=== PATIENT | male | born 1980 | race African-American/Black ===

== ENCOUNTER 2016-12-11 13:24 | Emergency (ER) | payer SELFPAY ==
--- NOTE | 2016-12-11 15:04 | ER Document Report ---
ED Medical Screen (RME) - General Mode of Arrival: Ambulatory Information source: Patient TRAVEL OUTSIDE OF THE [place] IN LAST 30 DAYS: No <SHANTELLE OBRIEN - Last Filed: 12/11/16 15:11> <DAGMAR AMARO - Last Filed: 12/11/16 19:28> - General Chief Complaint: High Blood Pressure Stated Complaint: ELEVATED BLOOD PRESSURE Time Seen by Provider: 12/11/16 14:54 Notes: Patient presents with complaints of high blood bressure. patient was told to come over by [facility] with his past three days blood pressure reading of 189/100, 200/110, 160/100. Patient also complains of chest tightness. Denies breathing difficulty, blurry vision, and pain in arms. Hx of asthma. (SHANTELLE OBRIEN) - Related Data Allergies/Adverse Reactions: No Known Allergies Allergy (Verified 12/11/16 14:42) Past Medical History - General Information source: Patient - Social History Cigarette use (# per day): Yes Frequency of alcohol use: None Drug Abuse: None Renal/ Medical History: Denies: Hx Peritoneal Dialysis <SHANTELLE OBRIEN - Last Filed: 12/11/16 15:11> Physical Exam - Respiratory Respiratory status: No respiratory distress Chest status: Nontender Breath sounds: Normal Chest palpation: Normal - Cardiovascular Rhythm: Regular Heart sounds: Normal auscultation - Abdominal Inspection: Normal <SHANTELLE OBRIEN - Last Filed: 12/11/16 15:11> Course - Laboratory Result Diagrams: 12/11/16 15:15 12/11/16 15:15 <DAGMAR AMARO - Last Filed: 12/11/16 19:28> - Vital Signs Vital signs: Temp Pulse Resp BP Pulse Ox 97.7 F 87 17 150/87 H 100 12/11/16 13:28 12/11/16 13:31 12/11/16 13:31 12/11/16 13:31 12/11/16 13:31 - Laboratory Laboratory results interpreted by me: 12/11/16 12/11/16 12/11/16 15:15 15:15 18:05 RBC 5.65 H MCH 26.2 L RDW 14.9 H Seg Neutrophils % 41.8 L Lymphocytes % 47.7 H Creatine Kinase 432 H 383 H Doctor's Discharge <SHANTELLE OBRIEN - Last Filed: 12/11/16 15:11> <DAGMAR AMARO - Last Filed: 12/11/16 19:28> - Discharge Clinical Impression: High blood pressure Qualifiers: Hypertension type: essential hypertension Qualified Code(s): I10 - Essential ( primary) hypertension Condition: Stable Disposition: HOME, SELF-CARE Additional Instructions: High Blood Pressure, Requiring Treatment Your blood pressure is high. This is called "hypertension." Your history and exam suggest that this is not a temporary problem. You need treatment of your blood pressure. Pre-hypertension/Hypertension: The patient has been informed that they may have pre-hypertension or Hypertension based on a blood pressure reading in the emergency department. I recommend that the patient call the primary care provider listed on their dischargge instructions or a physician of their choice this wee to arrage follow up for further evaluation of possible pre- hypertension or Hypertension. If left untreated, high blood pressure greatly increases your risk of heart attack and stroke. Please don't ignore this problem. If you have blood pressure medicine but aren't using it regularly, start taking it again. Some simple things you can do to help are: Get some aerobic exercise for at least 20 minutes on a daily basis. (See your doctor before beginning any new exercise program.) Eat a low-fat diet. Lose excess weight. Avoid salty foods and avoid adding salt to any of the foods you eat. Avoid diet pills, decongestants, "energizing" herbs, and other medicines that elevate blood pressure. There are many different medicines that treat blood pressure. If your medication causes unpleasant side effects, call your doctor. There are others you can try. Treating hypertension is a life-long investment in your health. TAKE THE MEDICATION PRESCRIBED FOR HIGH BLOOD PRESSURE. FOLLOW UP WITH A LOCAL MEDICAL DOCTOR TO CHECK AND MANAGE YOUR HIGH BLOOD PREESURE. RETURN TO THE EMERGENCY ROOM IF ANY NEW OR WORSENING SYMPTOMS. Prescriptions: Lisinopril 20 mg PO DAILY #30 tablet Scribe Documentation - Scribe Written by Edward:: edward Warren, 12/11/16, 9151 acting as scribe for :: Coral <SHANTELLE OBRIEN - Last Filed: 12/11/16 15:11>
[2016-12-11 15:28] LABS: ABSOLUTE BASOPHILS # (AUTO) 0.1 10^3/uL (0.0-0.2); ABSOLUTE EOSINOPHILS # (AUTO) 0.3 10^3/uL (0.0-0.6); ABSOLUTE LYMPHOCYTES (AUTO) 3.3 10^3/uL (0.5-4.7); ABSOLUTE MONOCYTES (AUTO) 0.4 10^3/uL (0.1-1.4); ABSOLUTE NEUT (AUTO) 2.9 10^3/uL (1.7-8.2); BASOPHILS % (AUTO) 1.2 % (0-2); EOSINOPHILS % (AUTO) 4.1 % (0-6); HEMATOCRIT 45.9 % (37.9-51.0); HEMOGLOBIN 14.8 g/dL (13.5-17.0); HGB HCT DIFFERENCE -1.5; LYMPHOCYTES % (AUTO) 47.7 % (13-45); MEAN CORPUSCULAR HEMOGLOBIN 26.2 pg (27.0-33.4); MEAN CORPUSCULAR HGB CONC 32.2 g/dL (32.0-36.0); MEAN CORPUSCULAR VOLUME 81 fl (80-97); MONOCYTES % (AUTO) 5.2 % (3-13); RED BLOOD COUNT 5.65 10^6/uL (4.35-5.55); RED CELL DISTRIBUTION WIDTH 14.9 % (11.5-14.0); SEGMENTED NEUTROPHILS % (AUTO) 41.8 % (42-78); WHITE BLOOD COUNT 6.9 10^3/uL (4.0-10.5)
[2016-12-11 15:47] LABS: ALANINE AMINOTRANSFERASE 43 U/L (21-72); ALBUMIN 3.9 g/dL (3.5-5.0); ALKALINE PHOSPHATASE 43 U/L (38-126); ANION GAP 11 (5-19); ASPARTATE AMINO TRANSFERASE 23 U/L (17-59); BILIRUBIN,DIRECT 0.4 mg/dL (0.0-0.4); BILIRUBIN,TOTAL 0.6 mg/dL (0.2-1.3); BLOOD UREA NITROGEN 14 mg/dL (7-20); CALCIUM 9.3 mg/dL (8.4-10.2); CARBON DIOXIDE 25 mmol/L (22-30); CHLORIDE 106 mmol/L (98-107); CREATINE KINASE 432 U/L (55-170); CREATININE RESULT 1.08 mg/dL (0.52-1.25); GLUCOSE 84 mg/dL (75-110); POTASSIUM 3.9 mmol/L (3.6-5.0); SODIUM 141.7 mmol/L (137-145); TOTAL PROTEIN 6.5 g/dL (6.3-8.2)
[2016-12-11 15:58] LABS: TROPONIN I < 0.012 ng/mL
--- NOTE | 2016-12-11 18:26 | ER Document Report ---
ED Blood Pressure Problem - General Mode of Arrival: Ambulatory Information source: Patient TRAVEL OUTSIDE OF THE [place] IN LAST 30 DAYS: No - HPI Patient complains to provider of: High blood pressure, Other - chest 'heaviness' Onset: Other - see notes above Pt currently taking medication for problem: No Associated symptoms: Other - see notes above <RADHA WAN - Last Filed: 12/11/16 18:21> <LUIS ANTONIO BROWN - Last Filed: 12/11/16 19:25> - General Chief Complaint: High Blood Pressure Stated Complaint: BLOOD PRESSURE PROBLEMS Time Seen by Provider: 12/11/16 14:54 Notes: 36 year old male with no known history of hypertension, but family history of hypertension (mother) presents to the ED complaining of elevated blood pressure that he noticed today when trying to give plasma at a plasma center. Patient reports that he was unable to give plasma because of his elevated pressure. Patient was seen at the [facility] and was advised to come to the ED. Patient reports he does not check his pressure regularly. Patient additionally complains of chest heaviness that has been present all week. Patient denies being on any medications. (RADHA WAN) - Related Data Allergies/Adverse Reactions: No Known Allergies Allergy (Verified 12/11/16 14:42) Past Medical History - General Information source: Patient - Social History Smoking Status: Current Every Day Smoker Cigarette use (# per day): Yes - 1 ppd Chew tobacco use (# tins/day): No Frequency of alcohol use: None Drug Abuse: Marijuana Family History: Hypertension - mother Patient has suicidal ideation: No Patient has homicidal ideation: No Pulmonary Medical History: Reports: Hx Asthma - as a child Renal/ Medical History: Denies: Hx Peritoneal Dialysis Surgical Hx: Negative - Immunizations Hx Diphtheria, Pertussis, Tetanus Vaccination: No <RADHA WAN - Last Filed: 12/11/16 18:21> Review of Systems - Review of Systems Constitutional: No symptoms reported EENT: No symptoms reported Cardiovascular: See HPI, Other - chest 'heaviness' and hypertension Respiratory: No symptoms reported Gastrointestinal: No symptoms reported Genitourinary: No symptoms reported Male Genitourinary: No symptoms reported Musculoskeletal: No symptoms reported Skin: No symptoms reported Hematologic/Lymphatic: No symptoms reported Neurological/Psychological: No symptoms reported -: Yes All other systems reviewed and negative <RADHA WAN - Last Filed: 12/11/16 18:21> Physical Exam - General General appearance: Alert In distress: None - HEENT Head: Normocephalic, Atraumatic Eyes: Normal Extraocular movements intact: Yes Pupils: PERRL - Respiratory Respiratory status: No respiratory distress Breath sounds: Wheezing - inspiratory and expiratory wheezing - Cardiovascular Rhythm: Regular Heart sounds: Normal auscultation - Abdominal Inspection: Other - overweight Distension: No distension Tenderness: Nontender - Back Back: Normal - Extremities General upper extremity: Normal inspection, Normal ROM General lower extremity: Normal inspection, Normal ROM - Neurological Neuro grossly intact: Yes - Psychological Associated symptoms: Normal affect, Normal mood - Skin Skin Temperature: Warm Skin Moisture: Dry Skin Color: Normal <RADHA WAN - Last Filed: 12/11/16 18:21> Course - Laboratory Result Diagrams: 12/11/16 15:15 12/11/16 15:15 <RADHA WAN - Last Filed: 12/11/16 18:21> - Laboratory Result Diagrams: 12/11/16 15:15 12/11/16 15:15 <LUIS ANTONIO BROWN - Last Filed: 12/11/16 19:25> - Vital Signs Vital signs: Temp Pulse Resp BP Pulse Ox 97.7 F 87 17 150/87 H 100 12/11/16 13:28 12/11/16 13:31 12/11/16 13:31 12/11/16 13:31 12/11/16 13:31 - Laboratory Laboratory results interpreted by me: 12/11/16 12/11/16 12/11/16 15:15 15:15 18:05 RBC 5.65 H MCH 26.2 L RDW 14.9 H Seg Neutrophils % 41.8 L Lymphocytes % 47.7 H Creatine Kinase 432 H 383 H Discharge <RADHA WAN - Last Filed: 12/11/16 18:21> <LUIS ANTONIO BROWN - Last Filed: 12/11/16 19:25> - Discharge Clinical Impression: High blood pressure Qualifiers: Hypertension type: essential hypertension Qualified Code(s): I10 - Essential ( primary) hypertension Condition: Stable Disposition: HOME, SELF-CARE Additional Instructions: High Blood Pressure, Requiring Treatment Your blood pressure is high. This is called "hypertension." Your history and exam suggest that this is not a temporary problem. You need treatment of your blood pressure. Pre-hypertension/Hypertension: The patient has been informed that they may have pre-hypertension or Hypertension based on a blood pressure reading in the emergency department. I recommend that the patient call the primary care provider listed on their dischargge instructions or a physician of their choice this wee to arrage follow up for further evaluation of possible pre- hypertension or Hypertension. If left untreated, high blood pressure greatly increases your risk of heart attack and stroke. Please don't ignore this problem. If you have blood pressure medicine but aren't using it regularly, start taking it again. Some simple things you can do to help are: Get some aerobic exercise for at least 20 minutes on a daily basis. (See your doctor before beginning any new exercise program.) Eat a low-fat diet. Lose excess weight. Avoid salty foods and avoid adding salt to any of the foods you eat. Avoid diet pills, decongestants, "energizing" herbs, and other medicines that elevate blood pressure. There are many different medicines that treat blood pressure. If your medication causes unpleasant side effects, call your doctor. There are others you can try. Treating hypertension is a life-long investment in your health. TAKE THE MEDICATION PRESCRIBED FOR HIGH BLOOD PRESSURE. FOLLOW UP WITH A LOCAL MEDICAL DOCTOR TO CHECK AND MANAGE YOUR HIGH BLOOD PREESURE. RETURN TO THE EMERGENCY ROOM IF ANY NEW OR WORSENING SYMPTOMS. Prescriptions: Lisinopril 20 mg PO DAILY #30 tablet Scribe Attestation: 12/11/16 19:25 I personally performed the services described in the documentation, reviewed and edited the documentation which was dictated to the scribe in my presence, and it accurately records my words and actions. (LUIS ANTONIO BROWN) Scribe Documentation - Scribe Written by Aniyah:: Aniyah Mariscal, 12/11/2016 [id number] acting as scribe for :: Malka <RADHA WAN - Last Filed: 12/11/16 18:21>
[2016-12-11 18:49] LABS: CREATINE KINASE MB 0.97 ng/mL (<4.55)
[2016-12-11 18:53] LABS: TROPONIN I < 0.012 ng/mL
[2016-12-11 18:55] LABS: APPEARANCE,URINE CLEAR; BILIRUBIN,URINE NEGATIVE (NEGATIVE); GLUCOSE, URINE NEGATIVE (NEGATIVE); KETONES,URINE NEGATIVE (NEGATIVE); LEUKOCYTE ESTERASE,URINE NEGATIVE (NEGATIVE); NITRITE,URINE NEGATIVE (NEGATIVE); PROTEIN,URINE NEGATIVE (NEGATIVE); URINE SPECIFIC GRAVITY 1.024; UROBILINOGEN,URINE NEGATIVE mg/dL (<2.0)
[2016-12-11 19:13] LABS: URINE BARBITURATES SCREEN NEGATIVE; URINE METHADONE SCREEN NEGATIVE; URINE OPIATES LOW NEGATIVE; URINE PHENCYCLIDINE SCREEN NEGATIVE
[2016-12-11 19:41] VITALS: BP 136/104
--- NOTE | 2016-12-12 12:02 | EKG REPORT ---
SEVERITY:- NORMAL ECG - SINUS RHYTHM : Confirmed by: Cody Dowell 12-Dec-2016 12:01:55
== END 2016-12-11 19:41 | disposition home or self-care (01) ==
LOC: ER 13:24
DX: I10 Essential (primary) hypertension (principal); R07.9 Chest pain, unspecified; F17.210 Nicotine dependence, cigarettes, uncomplicated
CPT/HCPCS: 36415; 80053; 80307; 81001; 82550; 82553; 84484; 85025; 93005; 93010; 99283